=== PATIENT | female | born 1970 | race Caucasian/White ===

== ENCOUNTER 2016-08-07 15:27 | Emergency (ER) | payer SELFPAY ==
[~2016-08-07] VITALS: Ht 172.7 cm; Wt 70.5 kg
[2016-08-07 15:31] VITALS: BP 137/106; PULSE 90; TEMP 97.4
[2016-08-07] MEDS ORDERED: NORCO 325 MG-51 TAB PO (15:58)
[2016-08-07] MEDS ORDERED: BACTRIM DS 8001 TAB PO (15:58)
== END 2016-08-07 16:30 | disposition home or self-care (01) ==
LOC: COL.ER 15:27
DX: N75.1 Abscess of Bartholin's gland (principal); B95.62 Methicillin resistant Staphylococcus aureus infection as the cause of diseases classified elsewhere; Z23 Encounter for immunization

== ENCOUNTER 2016-08-31 18:57 | Observation (INO) | payer SELFPAY ==
[~2016-08-31] VITALS: Ht 172.7 cm; Wt 65.0 kg
[~2016-08-31 18:57] MED LIST: BACTRIM DS 8001 TAB PO; NORCO 325 MG-51 TAB PO
[2016-08-31 19:33] LABS: PH 6 (5-8); SQUAMOUS EPITHELIAL 0-2 /hpf; URINE APPEARANCE Clear; URINE BACTERIA None Seen /hpf; URINE BILIRUBIN Negative (NEGATIVE); URINE BLOOD Negative (NEGATIVE); URINE COLOR Yellow; URINE GLUCOSE Negative (NEGATIVE); URINE KETONE Trace (NEGATIVE); URINE RBC 0-2 /hpf; URINE UROBILINOGEN Negative (NEGATIVE); URINE WBC 0-2 /hpf
[2016-08-31 19:37] LABS: AMPHETAMINE URINE POSITIVE; BARBITURATES URINE NEGATIVE; BENZODIAZEPINES URINE NEGATIVE; BUPRENORPHINE URINE NEGATIVE; METHADONE URINE NEGATIVE; OPIATES URINE NEGATIVE; OXYCODONE URINE NEGATIVE; PHENCYCLIDINE URINE NEGATIVE; PROPOXYPHENE URINE NEGATIVE; THC CANNABINOIDS URINE NEGATIVE
[2016-08-31 20:21] LABS: BASO % 0.7 % (0.0-2.0); EOS % 0.7 % (0-4.0); GRAN # 2.4 (1.4-6.5); GRAN % 58.1 % (42.2-75.2); HEMATOCRIT 38.5 % (37.0-47.0); HEMOGLOBIN 12.9 g/dl (12.5-16.0); LYMPH # 1.3 (1.2-3.4); LYMPH % 31.4 % (20.0-51.0); MEAN CELL VOLUME 88 fl (80.0-100.0); MEAN CORPUSCULAR HEMOGLOBIN 30 pg (27.0-31.0); MEAN CORPUSCULAR HGB CONC 34 g/dl (33.0-37.0); MEAN PLATELET VOLUME 9.9 fl (7.4-10.4); MONO # 0.4 (0.1-0.6); MONO % 8.9 % (1.7-9.3); PLATELET COUNT 216 K/mm3 (130-400); RED BLOOD COUNT 4.36 M/mm3 (4.10-5.30); REDCELL DISTRIBUTION WIDTH-CV 13.1 % (11.5-14.5); WHITE BLOOD COUNT 4.2 K/mm3 (4.8-10.8)
[2016-08-31 20:23] LABS: ALANINE AMINOTRANSFERASE 37 U/L (9-52); ALKALINE PHOSPHATASE 71 U/L (50-136); ANION GAP 10 mmol/L (7-16); BILIRUBIN,TOTAL 1.1 mg/dL (0.0-1.0); BLOOD UREA NITROGEN 13 mg/dL (7-17); CARBON DIOXIDE 28 mmol/L (22-30); CHLORIDE 98 mmol/L (98-107); CREATININE, serum 0.73 mg/dL (0.52-1.25); GLUCOSE 137 mg/dL (74-106); POTASSIUM 3.3 mmol/L (3.4-5.0); SODIUM 136 mmol/L (137-145); TOTAL PROTEIN 7.7 gm/dL (6.4-8.2)
[2016-08-31 20:34] LABS: TROPONIN-I < 0.012 ng/mL (0.000-0.034)
[2016-08-31 20:38] LABS: PROLACTIN 27.2 ng/mL (3.0-18.6)
[2016-08-31 21:42] VITALS: BP 152/97; PULSE 59; TEMP 96
[2016-09-01 00:09] VITALS: BP 134/103; PULSE 64; TEMP 96.4
[2016-09-01 03:02] VITALS: BP 124/83; PULSE 75; TEMP 95.8
[2016-09-01 07:35] VITALS: BP 112/75; PULSE 78; TEMP 97.7
[2016-09-01 07:52] LABS: CALCIUM 8.8 mg/dL (8.4-10.2); CREATININE, serum 0.78 mg/dL (0.52-1.25)
[2016-09-01 08:20] LABS: THYROID STIMULATING HORMONE 0.944 uIU/mL (0.465-4.680)
[2016-09-01 11:23] VITALS: BP 110/79; PULSE 69; TEMP 96.8
[2016-09-01 15:46] VITALS: BP 119/68; PULSE 68; TEMP 97.3
[2016-09-01 20:47] VITALS: BP 119/85; PULSE 82; TEMP 97.2
[2016-09-02 00:37] VITALS: BP 118/82; PULSE 60; TEMP 97.9
[2016-09-02 03:15] VITALS: BP 108/69; PULSE 64; TEMP 97.5
[2016-09-02 08:34] VITALS: BP 108/72; PULSE 70; TEMP 97.9
[2016-09-02 11:13] VITALS: BP 115/80; PULSE 85; TEMP 97.8
== END 2016-09-02 15:06 | disposition home or self-care (01) ==
LOC: COL.ER 18:57 → MEDICAL 20:44
PROVIDERS: Family Medicine
DX: F44.9 Dissociative and conversion disorder, unspecified (principal); E16.2 Hypoglycemia, unspecified; F41.9 Anxiety disorder, unspecified; I10 Essential (primary) hypertension; Z87.891 Personal history of nicotine dependence
CPT/HCPCS: A9585; G0378; G8978-GP; G8979-GP; J1650; J2310; J2405; J7030; J7120